=== PATIENT | female | born 1995 | race American Indian/Alaskan Native ===

== ENCOUNTER 2018-08-26 09:11 | Emergency (ER) | payer MEDICAID ==
[2018-08-26 09:55] LABS: Basophils % (Auto) 0.3 % (0.0-1.8); Eosinophils % (Auto) 0.7 % (0.0-4.3); Hematocrit 36.5 % (30.3-42.9); Hemoglobin 12.4 gm/dl (10.1-14.3); Lymphocytes # (Auto) 1.1 K/mm3 (1.2-5.4); Lymphocytes % (Auto) 19.1 % (13.4-35.0); Mean Corpuscular HGB Conc 34 % (30-34); Mean Corpuscular Volume 83 fl (79-97); Monocytes # (Auto) 0.5 K/mm3 (0.0-0.8); Monocytes % (Auto) 8.6 % (0.0-7.3); Platelet Count 262 K/mm3 (140-440); Red Cell Distribution Width 13.8 % (13.2-15.2)
[2018-08-26 10:12] LABS: BUN/Creatinine Ratio 4; Blood Urea Nitrogen 3 mg/dL (7-17); Calcium 9.1 mg/dL (8.4-10.2); Hemolysis Index 4
[2018-08-26] MEDS ORDERED: ATIVAN IM ONE (10:13)
[2018-08-26] MEDS ORDERED: WATER FOR INJ (PF) ONE (10:19)
[2018-08-26] MEDS: GEODON IM ONE ×2 (10:30→10:54)
[2018-08-26 10:35] LABS: Creatine Kinase MB 4.7 ng/mL (0.0-4.0)
[2018-08-26 10:37] LABS: Alanine Aminotransferase 25 units/L (7-56); Albumin 4.6 g/dL (3.9-5)
[2018-08-26 10:42] LABS: Bilirubin,Direct < 0.2 mg/dL (0-0.2)
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
[2018-08-26] MEDS ORDERED: TYLENOL PO PRN (11:55)
[2018-08-26] MEDS ORDERED: MILK OF MAGNESIA PO PRN (11:55)
[2018-08-26] MEDS ORDERED: ALUM-MAG HYDROX-SIMETH 200-200-20MG/5ML PO PRN (11:55)
[2018-08-26 11:56] LABS: Bilirubin,Urine NEG (Negative); Blood,Urine NEG (Negative); Color,Urine Straw (Yellow); Protein,Urine <15 mg/dL mg/dL (Negative); Urobilinogen,Urine < 2.0 mg/dL (<2.0); WBC,Urine < 1.0 /HPF (0.0-6.0)
[2018-08-26 12:01] LABS: Amphetamine Screen,Urine PRESUMPTIVE NEGATIVE; Benzodiazepines Screen,Urine PRESUMPTIVE NEGATIVE; Cocaine Screen,Urine PRESUMPTIVE NEGATIVE; Methadone Screen,Urine PRESUMPTIVE NEGATIVE; Opiate Screen,Urine PRESUMPTIVE NEGATIVE
[2018-08-26 12:38] LABS: Cannabinoid Screen,Urine PRESUMPTIVE POSITIVE
[2018-08-26] MEDS: GEODON PO SCH ×2 (13:45→22:29)
[2018-08-27] MEDS ORDERED: ATIVAN IM ONE ×3 (05:40→05:43)
[2018-08-27] MEDS: GEODON PO SCH (11:47)
--- NOTE | 2018-08-27 12:29 | Consultation ---
History of Present Illness - Reason for Consult Consult date: 08/27/18 Reason for consult: Mental Health Evaluation Requesting physician: BRANDIE GRUBER - Chief Complaint Chief complaint: "I see things" - History of Present Psychiatric Illness 22 y.o. AA female who presented to the ER for acute psychosis. Today the patient is calm, but disorganized during the assessment. Throughout the interview, the patient appears preoccupied. She was asked several questions about her mental health, most of her answers were not logical. She stated that she can see things moving constantly around her. She paused several times before she would answer questions. She was able to state that she receive the monthly Abilify injection, last administration was "some time last week" per the patient. Overall, the yolanda ent isn't a good historian. No gestures of SI/HI's. Medications and Allergies Allergies Allergy/AdvReac Type Severity Reaction Status Date / Time No Known Allergies Allergy Unverified 09/21/15 08:57 Home Medications Medication Instructions Recorded Confirmed Last Taken Type RX: No Known Home Medications [No 09/21/15 09/21/15 Unknown History Reported Home Medications] Active Meds: Active Medications Acetaminophen (Tylenol) 650 mg PO Q4HR PRN PRN Reason: Pain MILD(1-3)/Fever >100.5/DESOUZA Al Hydrox/Mg Hydrox/Simethicone (Alum-Mag Hydrox-Simeth [id number]/5ml) 30 ml PO Q4HR PRN PRN Reason: Indigestion Magnesium Hydroxide (Milk Of Magnesia) 30 ml PO Q12HR PRN PRN Reason: Constipation Ziprasidone (Geodon) 20 mg PO BID FRANKY Last Admin: 08/27/18 11:47 Dose: 20 mg Documented by: Past psychiatric history - Past Medical History Past Medical History: No medical history Past Surgical History: No surgical history - past Psychiatric treatment and history psychiatric treatment history: Several inpatient psy settings in the past. Denies a fam psy hx. - Social History Social history: lives with family Mental Status Exam - Vital signs Last Vital Signs Temp 98.5 F 08/27/18 02:00 Pulse 91 H 08/27/18 02:00 Resp 16 08/27/18 02:00 BP 125/57 08/27/18 02:00 Pulse Ox 99 08/27/18 02:00 - Exam Narrative exam: MSE: Appearance: calm Behavior: regular eye contact Speech: regular rate and tone Mood: labile Affect: congruent to mood Thought Process: disorganized Thought Content: no gestures of SI/HI's, delusional, possible paranoia Motor Activity: sitting up in bed Cognition: A/Ox 3 Insight: poor Judgment: poor Results Result Diagrams: 08/26/18 09:26 08/26/18 09:26 All other labs normal. Assessment and Plan Assessment and plan: Impression: Unspecified Psychosis. Cannabis Use DO. Today the patient is calm, disorganized during the assessment. DDx: Bipolar DO with psychosis, Substance Induced Psychosis Recommendation/Plan: Continues 1013 and gather collateral information. The patient receive the monthly Abilify injection with her last injection some time last week per the patient. Dispo: The patient was referred to inpatient psy services. Will staff with Dr Karon Vergara.
[2018-08-28] MEDS ORDERED: BENADRYL PO ONE ×2 (05:44→05:59)
[2018-08-28 08:15] VITALS: BP 125/71
--- NOTE | 2018-08-28 13:38 | Progress Note ---
Subjective - Reason for Consult Consult date: 08/28/18 Reason for consult: Psychiatry Follow-up - Chief Complaint Chief complaint: "I am exercising"" 22 y.o. AA female who presented to the ER for acute psychosis. Today the patient is calm, but still disorganized during the assessment. She was observed doing robotic movement prior to entering her room. She was asked about this movement, her answer wasn't logical. She stated that she didn't sleep well. Throughout the interview, the patient was hyper verbal. She denies SI/HI's and AVH's. Mental Status Exam - Vital signs Last Vital Signs Temp 98.4 F 08/28/18 10:08 Pulse 82 08/28/18 10:08 Resp 18 08/28/18 10:08 BP 125/71 08/28/18 10:08 Pulse Ox 100 08/28/18 10:08 - Exam Narrative exam: MSE: Appearance: calm Behavior: regular eye contact Speech: regular rate and tone Mood: labile Affect: congruent to mood Thought Process: disorganized Thought Content: no gestures of SI/HI's, delusional Motor Activity: sitting up in bed Cognition: A/Ox 3 Insight: poor Judgment: poor Assessment and Plan Impression: Unspecified Psychosis. Cannabis Use DO. The patient is with manic like symptoms. Today the patient is calm, but still disorganized during the assessment. DDx: Bipolar DO with psychosis, Substance Induced Psychosis Recommendation/Plan: Continues 1013. The patient receive the monthly Abilify injection with her last injection some time last week per the patient. Dispo: The patient was accepted at [facility] for inpatient psy services. Will staff with Dr Tushar Vergara.
== END 2018-08-28 11:46 ==
LOC: EEVIPCON 09:11 → ED 09:11
DX: F23 Brief psychotic disorder (principal); F17.200 Nicotine dependence, unspecified, uncomplicated; F12.10 Cannabis abuse, uncomplicated; F20.9 Schizophrenia, unspecified
CPT/HCPCS: 36415; 80048; 80076; 80307; 81001; 82550; 82553; 84703; 85025; 96372; 99285; G0480; J2060; J3486; 80320

== ENCOUNTER 2018-09-22 04:51 | Emergency (ER) | payer MEDICAID ==
--- NOTE | 2018-09-22 06:22 | Emergency Department Report ---
ED Psych HPI - General Chief Complaint: Psych Stated Complaint: EVAL Time Seen by Provider: 09/22/18 06:19 Source: EMS Mode of arrival: Stretcher - History of Present Illness Initial Comments: This is a 23-year-old female who I have previously seen. She has a bipolar disorder with psychotic features. She was released from [facility] about a week and a half ago. Mother thinks that her of Abilify is causing her psychosis to worsen. However she was given Abilify shot about a week and a half ago. The mother is uncertain as to if she is taking any current medications beyond Ativan. Apparently she has been somewhat out of control at home doing inappropriate things, throwing out food, wandering and essentially unmanageable. She did not do anything to harm herself or anything violent yet. The mother is asking for readmission to [facility]. As per her recent psychiatric nurse practitioner evaluation earlier this month: 22 y.o. AA female who presented to the ER for acute psychosis. Today the patient is calm, but still disorganized during the assessment. She was observed doing robotic movement prior to entering her room. She was asked about this movement, her answer wasn't logical. She stated that she didn't sleep well. Throughout the interview, the patient was hyper verbal. She denies SI/HI's and AVH's. Complaint: other -: week(s) Associated Psychiatric Symptoms: racing thoughts, delusions History of same: Yes Quality: constant Improves With: none Worsens With: medication (mother states Abilify is worsening it) Context: other (bipolar psychosis) Treatments Prior to Arrival: other (recent psychiatric hospitalization) If Self Harm: other (delusional) - Related Data Home Medications Medication Instructions Recorded Confirmed Last Taken ARIPiprazole [Abilify] 2 mg PO BID 08/28/18 08/28/18 Unknown Allergies Allergy/AdvReac Type Severity Reaction Status Date / Time No Known Allergies Allergy Unverified 09/21/15 08:57 ED Review of Systems ROS: Stated complaint: EVAL Other details as noted in HPI Constitutional: denies: chills, fever Eyes: denies: eye pain, eye discharge, vision change ENT: denies: ear pain, throat pain Respiratory: denies: cough, shortness of breath, wheezing Cardiovascular: denies: chest pain, palpitations Endocrine: no symptoms reported Gastrointestinal: denies: abdominal pain, nausea, diarrhea Genitourinary: denies: urgency, dysuria, discharge Musculoskeletal: denies: back pain, joint swelling, arthralgia Skin: denies: rash, lesions Neurological: denies: headache, weakness, paresthesias Psychiatric: as per HPI, anxiety (bipolar and psychotic), other. denies: depression Hematological/Lymphatic: denies: easy bleeding, easy bruising ED Past Medical Hx - Past Medical History Hx Psychiatric Treatment: Yes (Schizophrenia) - Social History Smoking Status: Heavy Tobacco Smoker Substance Use Type: Marijuana - Medications Home Medications: Home Medications Medication Instructions Recorded Confirmed Last Taken Type ARIPiprazole [Abilify] 2 mg PO BID 08/28/18 08/28/18 Unknown History ED Physical Exam - General Limitations: No Limitations General appearance: alert, in no apparent distress - Head Head exam: Present: atraumatic, normocephalic - Eye Eye exam: Present: normal appearance. Absent: scleral icterus - ENT ENT exam: Present: mucous membranes moist - Neck Neck exam: Present: normal inspection. Absent: tenderness, meningismus - Respiratory Respiratory exam: Present: normal lung sounds bilaterally. Absent: respiratory distress - Cardiovascular Cardiovascular Exam: Present: regular rate, normal rhythm. Absent: systolic murmur, diastolic murmur, rubs, gallop - GI/Abdominal GI/Abdominal exam: Present: soft, normal bowel sounds. Absent: distended, guarding, rebound - Extremities Exam Extremities exam: Present: normal inspection - Back Exam Back exam: Present: normal inspection - Neurological Exam Neurological exam: Present: alert, oriented X3, CN II-XII intact. Absent: motor sensory deficit - Psychiatric Psychiatric exam: Present: agitated, flat affect, other (this delusional and paranoid) - Skin Skin exam: Present: warm, dry, intact, normal color. Absent: rash ED Course Vital Signs 09/22/18 09/22/18 09/22/18 05:34 05:40 05:41 Temperature 98.9 F 98.9 F Pulse Rate 64 66 Respiratory 16 14 14 Rate Blood Pressure 92/49 Blood Pressure 92/49 [Left] O2 Sat by Pulse 99 100 100 Oximetry - Reevaluation(s) Reevaluation #1: 10 13 will be implemented. Patient will be referred for placement. Patient herself and mother requests a shot. She was given Geodon and Ativan. 09/22/18 06:52 ED Medical Decision Making - Lab Data Result diagrams: 09/22/18 06:18 09/22/18 06:18 Laboratory Results - last 24 hr 09/22/18 09/22/18 06:18 06:18 WBC 5.1 RBC 3.94 Hgb 11.0 Hct 33.1 MCV 84 MCH 28 MCHC 33 RDW 13.9 Plt Count 268 Lymph % (Auto) 29.7 [place] % (Auto) 9.0 H Eos % (Auto) 2.8 Baso % (Auto) 0.5 Lymph # 1.5 [place] # 0.5 Eos # 0.1 Baso # 0.0 Seg Neutrophils % 58.0 Seg Neutrophils # 2.9 Sodium 138 Potassium 3.8 Chloride 106.9 Carbon Dioxide 18 L Anion Gap 17 BUN 7 Creatinine 0.6 L Estimated GFR > 60 BUN/Creatinine Ratio 12 Glucose 88 Calcium 8.4 Critical care attestation.: If time is entered above; I have spent that time in minutes in the direct care of this critically ill patient, excluding procedure time. ED Disposition Clinical Impression: Bipolar disorder with psychotic features, Acute psychosis Disposition: DC/TX-65 PSY HOSP/PSY UNIT Is pt being admited?: No Does the pt Need Aspirin: No Condition: Stable Time of Disposition: 07:01
[2018-09-22 06:30] LABS: Basophils % (Auto) 0.5 % (0.0-1.8); Eosinophils # (Auto) 0.1 K/mm3 (0.0-0.4); Eosinophils % (Auto) 2.8 % (0.0-4.3); Hematocrit 33.1 % (30.3-42.9); Lymphocytes # (Auto) 1.5 K/mm3 (1.2-5.4); Lymphocytes % (Auto) 29.7 % (13.4-35.0); Mean Corpuscular HGB Conc 33 % (30-34); Mean Corpuscular Volume 84 fl (79-97); Monocytes # (Auto) 0.5 K/mm3 (0.0-0.8); Platelet Count 268 K/mm3 (140-440); Red Blood Count 3.94 M/mm3 (3.65-5.03); Red Cell Distribution Width 13.9 % (13.2-15.2)
[2018-09-22] MEDS ORDERED: ATIVAN IM ONE (06:47)
[2018-09-22] MEDS ORDERED: GEODON IM ONE ×3 (06:47→15:43)
[2018-09-22 06:51] LABS: BUN/Creatinine Ratio 12; Blood Urea Nitrogen 7 mg/dL (7-17); Calcium 8.4 mg/dL (8.4-10.2); Hemolysis Index 4
[2018-09-22] MEDS ORDERED: TYLENOL PO PRN (06:53)
[2018-09-22] MEDS ORDERED: MILK OF MAGNESIA PO PRN (06:53)
[2018-09-22] MEDS ORDERED: ALUM-MAG HYDROX-SIMETH 200-200-20MG/5ML PO PRN (06:53)
[2018-09-22] MEDS ORDERED: GEODON IM PRN (06:54)
[2018-09-22] MEDS ORDERED: THORAZINE IM PRN (08:30)
[2018-09-22] MEDS ORDERED: ATIVAN PO SCH (10:00)
[2018-09-22] MEDS ORDERED: GEODON PO SCH (10:00)
--- NOTE | 2018-09-22 12:22 | Consultation ---
History of Present Illness - Reason for Consult Consult date: 09/22/18 Reason for consult: Mental Healt Evaluation Requesting physician: BRANDIE GRUBER - Chief Complaint Chief complaint: "I can hear you" - History of Present Psychiatric Illness 23 y.o. AA female who presented to the ER for bizarre behavior. This patient is known to me. Today the patient is disorganized during the assessment. Her answ ers to questions were not logical. She appears to be preoccupied and need constant redirection throughout the interview. Per the EMR and the patient, she receive the monthly Invega injection (administered last week). Overall, the patient isn't a good historian. No gestures of SI/HI's. Medications and Allergies Allergies Allergy/AdvReac Type Severity Reaction Status Date / Time No Known Allergies Allergy Unverified 09/21/15 08:57 Home Medications Medication Instructions Recorded Confirmed Last Taken Type ARIPiprazole [Abilify] 2 mg PO BID 08/28/18 09/22/18 Unknown History Active Meds: Active Medications Acetaminophen (Tylenol) 650 mg PO Q4HR PRN PRN Reason: Pain MILD(1-3)/Fever >100.5/DESOUZA Al Hydrox/Mg Hydrox/Simethicone (Alum-Mag Hydrox-Simeth [id number]/5ml) 30 ml PO Q4HR PRN PRN Reason: Indigestion Chlorpromazine HCl (Thorazine) 25 mg IM Q8H PRN PRN Reason: Acute Psychosis Last Admin: 09/22/18 09:59 Dose: 25 mg Documented by: Magnesium Hydroxide (Milk Of Magnesia) 30 ml PO Q12HR PRN PRN Reason: Constipation Past psychiatric history - Past Medical History Past Medical History: other (Unable to obtain ) Past Surgical History: Other (Unable to obtain ) - past Psychiatric treatment and history psychiatric treatment history: Hx of Psychosis and Substance abuse. Unable to obtain a fam psy hx. - Social History Social history: lives with family Mental Status Exam - Vital signs Last Vital Signs Temp 99.2 F 09/22/18 07:07 Pulse 81 09/22/18 07:07 Resp 16 09/22/18 07:07 BP 94/47 09/22/18 07:07 Pulse Ox 100 09/22/18 07:07 - Exam Narrative exam: MSE: Appearance: in hospital attire Behavior: poor eye contact Speech: regular rate and tone Mood: preoccupied Affect: congruent to mood Thought Process: disorganized Thought Content: no gestures of SI/HI's Motor Activity: sitting up in bed Cognition: A/Ox 3 Insight: poor Judgment: poor Results Result Diagrams: 09/22/18 06:18 09/22/18 06:18 Abnormal lab results 09/22/18 09/22/18 Range/Units 06:18 06:18 [place] % (Auto) 9.0 H (0.0-7.3) % Carbon Dioxide 18 L (22-30) mmol/L Creatinine 0.6 L (0.7-1.2) mg/dL All other labs normal. Assessment and Plan Assessment and plan: Impression: Unspecified Psychosis. Today the patient is calm, disorganized during the assessment. DDx: Bipolar DO with psychosis, Substance Induced Psychosis Recommendation/Plan: Continues 1013 and Thorazine 25 mg IM Q8hrs for acute psychosis. The patient receive the monthly Abilify injectuion, last admin was a week ago per. UA/UDS pending. Dispo: The patient was referred to inpatient psy services. Will staff with Dr Karon Vergara.
[2018-09-22 13:44] VITALS: BP 101/48
[2018-09-22 14:31] LABS: Bacteria,Urine 1+ /HPF (Negative); Bilirubin,Urine NEG (Negative); Blood,Urine NEG (Negative); Color,Urine Yellow (Yellow); Mucus,Urine FEW /HPF; Protein,Urine <15 mg/dL mg/dL (Negative); Urobilinogen,Urine < 2.0 mg/dL (<2.0)
[2018-09-22 14:40] LABS: Amphetamine Screen,Urine PRESUMPTIVE NEGATIVE; Benzodiazepines Screen,Urine PRESUMPTIVE NEGATIVE; Cocaine Screen,Urine PRESUMPTIVE NEGATIVE; Methadone Screen,Urine PRESUMPTIVE NEGATIVE; Opiate Screen,Urine PRESUMPTIVE NEGATIVE
[2018-09-22 15:10] LABS: Cannabinoid Screen,Urine PRESUMPTIVE POSITIVE
[2018-09-22] MEDS ORDERED: COGENTIN PO SCH (22:00)
== END 2018-09-22 18:07 ==
LOC: ED 04:51 → EEVIPCON 04:51 → ED 18:07
DX: F31.2 Bipolar disorder, current episode manic severe with psychotic features (principal); F23 Brief psychotic disorder; F41.9 Anxiety disorder, unspecified; F17.200 Nicotine dependence, unspecified, uncomplicated; F12.10 Cannabis abuse, uncomplicated
CPT/HCPCS: 36415; 80048; 80307; 81001; 84703; 85025; 96372; 99285; G0480; J3230; J3486; 80320